=== PATIENT | female | born 1975 | race African-American/Black ===

== ENCOUNTER 2020-05-19 17:36 | Emergency (ER) | payer OTHER ==
[~2020-05-19] VITALS: Ht 162.6 cm; Wt 88.2 kg
[~2020-05-19 17:36] MED LIST: HEADACHE MED PO; OXYM-17 NASAL; PAIN MED PO; [UNRECOGNIZED DRUG - OTHER] PO
[2020-05-19] MEDS ORDERED: IBUPROFEN 600 MG TABLET PO ONE (18:30)
[2020-05-19] MEDS ORDERED: ACETAMINOPHEN/CODEINE 300-30 MG TABLET PO ONE (18:30)
[2020-05-19 19:38] VITALS: BP 148/80
== END 2020-05-19 19:39 | disposition home or self-care (01) ==
LOC: EMS 17:37
DX: S93.401A Sprain of unspecified ligament of right ankle, initial encounter (principal); G43.909 Migraine, unspecified, not intractable, without status migrainosus; W19.XXXA Unspecified fall, initial encounter; Y93.89 Activity, other specified; Y92.89 Other specified places as the place of occurrence of the external cause; Y99.8 Other external cause status
CPT/HCPCS: 29515; 29540

== ENCOUNTER 2021-05-09 12:23 | Emergency (ER) | payer OTHER ==
[~2021-05-09] VITALS: Ht 165.1 cm; Wt 88.6 kg
[~2021-05-09 12:23] MED LIST changes: -HEADACHE MED PO; -PAIN MED PO; -[UNRECOGNIZED DRUG - OTHER] PO
[2021-05-09] MEDS ORDERED: FERR-82 PO (12:32)
[2021-05-09] MEDS ORDERED: TOPI25 PO (12:32)
[2021-05-09] MEDS ORDERED: CHOL100044 PO (12:32)
[2021-05-09] MEDS ORDERED: MORPHINE SULFATE 4 MG/ML SYRINGE IVP ONE (14:15)
[2021-05-09] MEDS ORDERED: KETOROLAC TROMETHAMINE 30 MG/ML VIAL IVP ONE (14:15)
[2021-05-09] MEDS ORDERED: HYDROmorphone 2 MG/ML VIAL IVP ONE (16:00)
[2021-05-09] MEDS ORDERED: ACETAMINOPHEN 1000 MG/ISO-OSM 100 ML IV ONE (16:00)
[2021-05-09] MEDS ORDERED: SODIUM CHLORIDE 0.9% 1,000 ML IV ONE (16:00)
[2021-05-09 17:49] VITALS: BP 131/81
== END 2021-05-09 17:55 | disposition home or self-care (01) ==
LOC: EMS 12:28
DX: G89.29 Other chronic pain (principal); M54.9 Dorsalgia, unspecified; R51.9 Headache, unspecified
CPT/HCPCS: 96361; 96374; 96375; 99284; J1885; J2270; J7030

== ENCOUNTER 2023-03-07 01:49 | Emergency (ER) | payer OTHER ==
[~2023-03-07] VITALS: Ht 157.5 cm; Wt 94.5 kg
[~2023-03-07 01:49] MED LIST changes: +CHOL25TA4 PO; +FERR-82 PO; +TOPI25 PO
[2023-03-07] MEDS ORDERED: IBUPROFEN 600 MG TABLET PO ONE (03:45)
[2023-03-07 04:30] VITALS: BP 127/65
== END 2023-03-07 05:14 | disposition home or self-care (01) ==
LOC: EMS 01:50
DX: S93.401A Sprain of unspecified ligament of right ankle, initial encounter (principal); G43.909 Migraine, unspecified, not intractable, without status migrainosus; Z98.890 Other specified postprocedural states; W19.XXXA Unspecified fall, initial encounter; Y93.89 Activity, other specified; Y92.89 Other specified places as the place of occurrence of the external cause; Y99.8 Other external cause status
CPT/HCPCS: 29540; 99283